=== PATIENT | male | born 1970 | race Caucasian/White ===

== ENCOUNTER 2020-03-05 14:54 | Emergency (ER) | payer OTHER ==
[2020-03-05 14:58] VITALS: TEMP 98.6
[2020-03-05] MEDS ORDERED: LIDOCAINE 1% INJ 10MG/ML (20 ML MDV) SQ ONE (15:10)
[2020-03-05] MEDS ORDERED: ceFAZolin 1,000 MG VIAL (IM USE) IM STA (15:10)
[2020-03-05] MEDS ORDERED: HYDROcodone/APAP 10-325MG 1 EACH TAB PO ONE (15:10)
[2020-03-05] MEDS ORDERED: DIPH,PERTUS(ACELL)TETVAC-LF 0.5 ML VIAL IM ONE (15:10)
--- NOTE | 2020-03-05 15:22 | XR ---
Second digit left hand HISTORY: Trauma and pain 3 views of the second digit left hand Comminuted tuft fracture is present displaced fracture fragments. There may be punctate foreign juan s within the soft tissues. No dislocation. IMPRESSION: Comminuted tuft fracture as described, correlate for loose bodies
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
[2020-03-05] MEDS ORDERED: ACET/COD 300 MG/30 MG STARTER PACK 6 TAB BTL PO STA (16:31)
[2020-03-05 16:38] VITALS: BP 141/98; PULSE 88; RESP 16
== END 2020-03-05 16:40 | disposition home or self-care (01) ==
LOC: EC 14:54
DX: S62.631B Displaced fracture of distal phalanx of left index finger, initial encounter for open fracture (principal); S67.191A Crushing injury of left index finger, initial encounter; S61.211A Laceration without foreign body of left index finger without damage to nail, initial encounter; Z23 Encounter for immunization; W23.0XXA Caught, crushed, jammed, or pinched between moving objects, initial encounter
CPT/HCPCS: 73140; 90715; 99283; 12001; 90471; 96372; J0690; J2001

== ENCOUNTER 2020-05-21 11:45 | Emergency (ER) | payer OTHER ==
[2020-05-21 11:51] VITALS: BP 126/78; PULSE 67; RESP 16; TEMP 97.9
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
== END 2020-05-21 13:17 | disposition home or self-care (01) ==
LOC: EC 11:45
DX: L02.01 Cutaneous abscess of face (principal); F17.290 Nicotine dependence, other tobacco product, uncomplicated; W57.XXXA Bitten or stung by nonvenomous insect and other nonvenomous arthropods, initial encounter
CPT/HCPCS: 10060; 99281

== ENCOUNTER → 2020-07-03 | Outpatient (CLI) | payer OTHER ==
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
== END | disposition home or self-care (01) ==
LOC: RADMRIMAIN 18:55
PROVIDERS: ATTEND Family Medicine
DX: M47.812 Spondylosis without myelopathy or radiculopathy, cervical region (principal); M47.817 Spondylosis without myelopathy or radiculopathy, lumbosacral region
CPT/HCPCS: 72141; 72148

== ENCOUNTER 2020-10-31 16:02 | Emergency (ER) | payer OTHER ==
[2020-10-31 16:16] VITALS: BP 152/87; PULSE 80; RESP 18; TEMP 98.9
[2020-10-31] MEDS ORDERED: KETOROLAC 15 MG/ML 1 ML VIAL IM STA (16:46)
--- NOTE | 2020-10-31 17:18 | XR ---
EXAMINATION TYPE: XR knee complete LT DATE OF EXAM: 10/31/2020 CLINICAL HISTORY: Pain for 4 days. History of ACL tear. TECHNIQUE: Three views of the left knee are obtained. COMPARISON: None. FINDINGS: There is no acute fracture/dislocation evident in left knee. Mild to moderate narrowing me dial tibiofemoral compartment. Mild narrowing patellofemoral compartment. Well-defined lucency and m etallic hardware from ACL reconstruction surgery noted. Increased soft tissue density suprapatellar b ursa suspicious for small to moderate size joint effusion. IMPRESSION: As above.
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
== END 2020-10-31 17:41 | disposition home or self-care (01) ==
LOC: EC 16:02
DX: M25.462 Effusion, left knee (principal); M25.562 Pain in left knee; Z87.828 Personal history of other (healed) physical injury and trauma
CPT/HCPCS: 73562; J1885; 96372; 99283

== ENCOUNTER → 2020-12-18 | Outpatient (CLI) | payer OTHER ==
--- NOTE | 2020-12-18 16:08 | MR ---
EXAMINATION TYPE: MR knee LT wo con DATE OF EXAM: 12/18/2020 COMPARISON: Outside left knee x-ray December 17, 2020. Left knee x-ray October 31, 2020 HISTORY: L knee pain for 6 weeks, history of ACL tear and surgical repair. TECHNIQUE: Multiplanar, multisequence imaging of the left knee is performed without IV contrast. FINDINGS: MEDIAL MENISCUS: Posterior horn has oblique increased signal extending to inferior articular surface. LATERAL MENISCUS: Anterior and posterior horns are intact without tear. CRUCIATE LIGAMENTS: The posterior cruciate ligament is intact and unremarkable. There is artifact fro m metallic hardware from prior anterior cruciate ligament repair. Surgically repaired anterior crucia te ligament felt to remain intact sagittal images 14 through 16 as it extends anteriorly inferiorly. No recurrent full-thickness tear is seen. COLLATERAL LIGAMENTS: The medial collateral ligament and lateral collateral ligament complex are inta ct. Slight medial bulging of medial collateral ligament with mild surrounding subcutaneous edema. EXTENSOR MECHANISM: Visualized quadriceps and patellar tendons are intact. EFFUSION: No significant suprapatellar joint effusion. POPLITEAL CYST: No popliteal/barrios cyst. TRICOMPARTMENT SPACES: Moderate narrowing medial tibiofemoral compartment. Mild to moderate tricompar tment spurring. Mild narrowing patellofemoral compartment. CARTILAGE: Tricompartmental articular cartilage fairly well-maintained. BONE MARROW SIGNAL: Susceptibility artifact from metallic hardware and heterogeneity along site of os seous changes related to ACL repair. No new suspicious osseous edema. OTHER: Susceptibility artifact extends into the Hoffa's fat pad without suspicious edema. IMPRESSION: 1. Artifact from prior ACL repair, no recurrent complete tear identified. 2. Mild to moderate tricompartment degenerative changes greatest medial tibiofemoral compartment as d etailed above. 3. Oblique full-thickness tear posterior horn medial meniscus. 4. Mild MCL sprain injury.
== END | disposition home or self-care (01) ==
LOC: RADMRIMAIN 13:02
PROVIDERS: ATTEND Orthopaedic Surgery
DX: M17.12 Unilateral primary osteoarthritis, left knee (principal); S83.242A Other tear of medial meniscus, current injury, left knee, initial encounter; S83.412A Sprain of medial collateral ligament of left knee, initial encounter

== ENCOUNTER 2020-12-31 21:13 | Emergency (ER) | payer OTHER ==
[2020-12-31 21:22] VITALS: BP 132/86; PULSE 110; TEMP 99
[2020-12-31] MEDS ORDERED: ETODOLAC 400 MG TAB PO STA (21:53)
[2020-12-31] MEDS ORDERED: ACET/COD 300 MG/30 MG STARTER PACK 6 TAB BTL PO STA (21:53)
[2020-12-31] MEDS ORDERED: diphenhydrAMINE 50 MG CAP PO STA (21:53)
[2020-12-31] MEDS ORDERED: HYDROmorphone 1 MG/ML 1 ML SYRINGE IM STA (21:53)
[2020-12-31] MEDS ORDERED: dexAMETHasone 2 MG TAB PO STA (21:54)
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
--- NOTE | 2020-12-31 22:49 | CT ---
EXAMINATION TYPE: CT lumbar spine wo con DATE OF EXAM: 12/31/2020 COMPARISON: None HISTORY: chronic low back and siatic nerve pain CT DLP: combined DLP 1186.8 mGycm Automated exposure control for dose reduction was used. Images obtained from the level of T12-S2 to vertebra with no contrast. FINDINGS: Lumbar vertebra have normal alignment. There is vacuum disc at L5-S1. Disc spaces overall are fairly normal. There is no compression fracture. I see no bony destructive process. There is no lumbar jael zheng mass. I see no evidence of bony lumbar spinal stenosis. Sacroiliac joints are intact. Kidneys s how no hydronephrosis. IMPRESSION: Mild degenerative disc changes at L5-S1. No fracture seen. No spinal stenosis. Mild posterior concent filomena disc bulge and herniation at L5-S1 without significant impingement on the neural elements.
--- NOTE | 2020-12-31 22:54 | CT ---
EXAMINATION TYPE: CT sacrum wo con DATE OF EXAM: 12/31/2020 COMPARISON: None HISTORY: chronic low back and siatic nerve pain CT DLP: combined DLP 1186.8 mGycm Automated exposure control for dose reduction was used. Images obtained from the level of L5 to the tip of the coccyx without contrast. Segments have normal alignment. There is no evidence of a fracture. I see no focal bone destruction. Sacroiliac joints appear normal. There is no evidence of presacral mass. Rectum appears normal. Bladd er distends smoothly. I see no evidence of a pelvic mass. There is a mild posterior central disc vi iation at L5-S1 without significant impingement on the thecal sac. Left and right psoas muscles appea r normal. IMPRESSION: Mild posterior central L5-S1 lumbar disc herniation. No spinal stenosis. No evidence of the sacrum or coccyx fracture.
[2020-12-31 23:17] VITALS: RESP 16
== END 2020-12-31 23:50 | disposition home or self-care (01) ==
LOC: EC 21:13
DX: S39.012A Strain of muscle, fascia and tendon of lower back, initial encounter (principal); M54.16 Radiculopathy, lumbar region; X58.XXXA Exposure to other specified factors, initial encounter
CPT/HCPCS: 72131; 72192; 99283; 96372; J1170; J8540

== ENCOUNTER 2021-05-05 19:41 | Emergency (ER) | payer OTHER ==
[2021-05-05 19:56] VITALS: PULSE 76; RESP 20
[2021-05-05] MEDS ORDERED: MORPHINE SULFATE 4 MG/ML SYRINGE IVP STA (20:05)
[2021-05-05] MEDS ORDERED: KETOROLAC 15 MG/ML 1 ML VIAL IVP STA (20:05)
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
--- NOTE | 2021-05-05 21:25 | XR ---
EXAMINATION TYPE: XR lumbosacral spine min 4V DATE OF EXAM: 05/05/2021 COMPARISON: NONE HISTORY: Fall. Pain. TECHNIQUE: 5 views FINDINGS: Lumbar vertebra have normal alignment. Disc spaces are fairly normal. Posterior elements ar e intact. There is minor spurring anteriorly in the lower lumbar spine. Sacroiliac joints are intact. There is no compression fracture. IMPRESSION: Mild degenerative spurring. No fracture.
--- NOTE | 2021-05-05 21:27 | XR ---
EXAMINATION TYPE: XR ribs RT w pa chest xray DATE OF EXAM: 05/05/2021 COMPARISON: NONE HISTORY: Fall. Pain. TECHNIQUE: 5 views FINDINGS: There is no pleural effusion or pneumothorax. The right ribs appear intact. Right lung appe ars clear of infiltrate. Heart and mediastinum appear normal. IMPRESSION: Normal chest. Normal right ribs.
--- NOTE | 2021-05-05 21:28 | XR ---
EXAMINATION TYPE: XR thoracic spine 2V DATE OF EXAM: 05/05/2021 COMPARISON: NONE HISTORY: Fall. Pain. TECHNIQUE: 3 views FINDINGS: Thoracic vertebra have normal alignment. Posterior elements are intact. There is no paraspi nal mass. There is no compression fracture. IMPRESSION: Negative thoracic spine exam. No fracture.
--- NOTE | 2021-05-05 21:29 | XR ---
EXAMINATION TYPE: XR hand complete RT DATE OF EXAM: 05/05/2021 COMPARISON: NONE HISTORY: Fall. Pain. TECHNIQUE: 3 views FINDINGS: Metacarpals are intact. Fingers appear intact. I see no fracture nor dislocation. There is plate fixing the distal radius. IMPRESSION: No acute abnormality of the right hand.
[2021-05-05] MEDS ORDERED: HYDROmorphone 0.5 MG/0.5 ML SYRINGE IVP STA (21:36)
--- NOTE | 2021-05-05 22:12 | CT ---
EXAMINATION TYPE: CT thoracic spine wo con DATE OF EXAM: 05/05/2021 COMPARISON: None HISTORY: Fall, thoracic pain CT DLP: 929.1 mGycm Automated exposure control for dose reduction was used. Images obtained from T1 to T12 without contrast. Thoracic vertebra have normal spacing and alignment. There is no compression fracture. There is minor spurring of the endplates anteriorly in the lower cervical spine and lower thoracic spine. There is no thoracic paraspinal mass. The posterior elements are intact. I see no focal bone destruction. IMPRESSION: Mild spurring. No fracture seen.
[2021-05-05 22:37] VITALS: BP 120/81; TEMP 98.1
== END 2021-05-05 22:37 | disposition home or self-care (01) ==
LOC: EC 19:41
DX: S20.224A Contusion of middle back wall of thorax, initial encounter (principal); F17.290 Nicotine dependence, other tobacco product, uncomplicated; W10.8XXA Fall (on) (from) other stairs and steps, initial encounter
CPT/HCPCS: 99284; 96374; 96375 ×2; 71101; 72070; 72110; 73130; 72128; J2270; J1885; J1170